=== PATIENT | male | born 1945 | race Caucasian/White ===

== ENCOUNTER 2022-01-15 23:40 | Emergency (ER) | payer MEDICARE, MEDICAID, SELFPAY ==
[2022-01-15 23:48] VITALS: BP 137/83; BP 150/80; PULSE 63; PULSE 64; RESP 16; TEMP 36.6; O2SAT 94; BMI 23.7
[2022-01-15 23:54] LABS: Glucose, Whole Blood 52 mg/dL (60-115)
--- NOTE | 2022-01-15 23:56 | ED.AMS ---
HPI - Altered Mental Status General Chief Complaint: Recheck/Abnormal Lab/Rx Stated Complaint: hypoglycemia Time Seen by Provider: 01/15/22 23:56 Source: patient, EMS and RN notes reviewed Mode of arrival: EMS Limitations: no limitations History of Present Illness HPI narrative: Patient from shelter came for episode of syncope. Patient just discharged from [facility] after 3 months of stay to the shelter on 01/14, with history of osteomyelitis of left foot on ampicillin IV, and CT renal disease dialysis, diabetes on insulin, COPD, paroxysmal atrial fibrillation, heart failure with preserved ejection fraction was at baseline at 20:30 blood sugar tested was 78. Patient is supposed to get Lantus 8 units at that time but was not given because the blood sugar was low at 22:30 when nurse went to see him patient was obtunded with minimal response blood pressure was 104/69 heart rate 121 blood sugar checked was 76 at that time when EMS came patient POC was 40 was given 150 cc of D10 and recheck PC was 143 patient arrived awake alert and oriented back to baseline during triage POC dropped to 52 patient was given 2 orange juices had this time patient is at his baseline denies any chest pain Related Data Allergies Allergy/AdvReac Type Severity Reaction Status Date / Time acetaminophen [From Vicodin] Allergy Unknown Unknown Verified 01/16/22 00:40 hydrocodone [From Vicodin] Allergy Unknown Unknown Verified 01/16/22 00:40 vancomycin Allergy Unknown Unknown Verified 01/16/22 00:40 Review of Systems Review of Systems: Yes all other systems are reviewed and are negative [facility] Past Medical History Medical History (Updated 01/16/22 @ 01:15 by Milan Hernandez MD) Amputation foot, bilat COPD (chronic obstructive pulmonary disease) Diabetes mellitus type 1 End stage renal disease Hyperlipidemia Hypertension Osteomyelitis Paroxysmal A-fib Peripheral arterial disease Physical Exam ED Vital Signs: Vital Signs - 24 hr 01/15/22 23:48 01/16/22 00:00 Temperature 97.8 F Pulse Rate 63 61 Respiratory Rate 16 18 Blood Pressure 137/83 135/80 Pulse Oximetry 94 96 BMI result Body Mass Index 23.7 Appearance: Alert. Oriented X3. No acute distress. Eyes: Pallor+ ENT: Pharynx normal. Oral Mucosa moist Neck: Normal inspection. Neck supple. CVS: Normal heart rate and rhythm. Pulses normal. Respiratory: No respiratory distress. Equal air entry bilateral, no wheezing/rales/rhonchi Abdomen: Soft and nontender. Bowel sounds are present, no mass palpable, no CVA tenderness Skin: Skin warm and dry. Normal skin color. Normal skin turgor. Extremities: No lower extremity edema. No calf tenderness, bilateral foot amputation right thomas carpal amputation Neuro: Oriented X 3. No motor deficit. No sensory deficit.No cerebellar signs , cranial nerves II-XII intact MDM - Altered Mental Status MDM Narrative Medical decision making narrative: Patient with hypoglycemic episode responded to dextrose not on oral hypoglycemic labs are stable no acute ischemic changes in the EKG at this time patient patient is alert x3 at his baseline will discharge patient back to shelter patient elevated troponin secondary to renal failure has normal CPK no acute ischemic change in EKG during stay Lab Data Attestation: I reviewed the patient's lab results. Result diagrams: 01/16/22 00:26 01/16/22 00:26 Labs: Lab Results 01/15/22 01/16/22 01/16/22 Range/Units 23:49 00:26 00:26 WBC 8.7 (4.8-10.8) X10*3/uL RBC 3.69 L (4.60-5.80) X10*6/uL Hgb 10.9 L (14.0-18.0) g/dl Hct 34.9 L (42.0-52.0) % MCV 94.6 (80.0-98.0) fL MCH 29.5 (27.0-33.0) pg MCHC 31.2 (31.0-36.0) g/dl RDW 16.8 H (11.0-16.0) % Plt Count 231 (160-400) X10*3/uL MPV 10.0 (9.4-12.4) fL Immature Gran % (Auto) 0.3 (0.0-0.4) % Neut % (Auto) 80.0 H (45-73) % Lymph % (Auto) 8.4 L (20-40) % [place] % (Auto) 10.8 (2-11) % Eos % (Auto) 0.3 (0-4) % Baso % (Auto) 0.2 (0-2) % Lymph # (Auto) 0.7 L (1.2-4.9) X10*3/uL [place] # (Auto) 0.9 (0.1-1.2) X10*3/uL Eos # (Auto) 0.0 (0.0-0.4) X10*3/uL Baso # (Auto) 0.0 (0.0-0.2) X10*3/uL Abs Immat Gran (auto) 0.03 (0.00-0.03) X10*3/uL Absolute Neuts (auto) 7.0 (2.0-8.3) x10*3/uL Absolute Nucleated RBC 0.000 (0.0-0.012) X10*3/uL Nucleated RBC % (auto) 0.0 (0.0-0.2) /100WBC Sodium 131 L (135-145) mmol/L Potassium 5.3 H (3.3-5.1) mmol/L Chloride 97 (96-108) mmol/L Carbon Dioxide 16 L (22-29) mmol/L Anion Gap 23 H (12-20) BUN 110 H (9-16) mg/dL Creatinine 5.87 H* (0.5-1.4) mg/dL Estim Creat Clear Calc 12.1 Estimated GFR 9 POC Glucose 52 L* (60-115) mg/dL Random Glucose 183 H (60-115) mg/dL Calcium 8.4 (8.4-10.2) mg/dL Total Bilirubin 0.5 (0.0-1.0) mg/dL AST 22 (5-37) U/L ALT 8 (0-40) U/L Alkaline Phosphatase 195 H (39-117) U/L Total Creatine Kinase 35 L (38-174) U/L Troponin I High Sens (<3.5-35.0) ng/L Total Protein 7.0 (6.5-8.0) g/dL Albumin 2.7 L (3.5-5.0) g/dL 01/16/22 01/16/22 Range/Units 00:26 00:49 WBC (4.8-10.8) X10*3/uL RBC (4.60-5.80) X10*6/uL Hgb (14.0-18.0) g/dl Hct (42.0-52.0) % MCV (80.0-98.0) fL MCH (27.0-33.0) pg MCHC (31.0-36.0) g/dl RDW (11.0-16.0) % Plt Count (160-400) X10*3/uL MPV (9.4-12.4) fL Immature Gran % (Auto) (0.0-0.4) % Neut % (Auto) (45-73) % Lymph % (Auto) (20-40) % [place] % (Auto) (2-11) % Eos % (Auto) (0-4) % Baso % (Auto) (0-2) % Lymph # (Auto) (1.2-4.9) X10*3/uL [place] # (Auto) (0.1-1.2) X10*3/uL Eos # (Auto) (0.0-0.4) X10*3/uL Baso # (Auto) (0.0-0.2) X10*3/uL Abs Immat Gran (auto) (0.00-0.03) X10*3/uL Absolute Neuts (auto) (2.0-8.3) x10*3/uL Absolute Nucleated RBC (0.0-0.012) X10*3/uL Nucleated RBC % (auto) (0.0-0.2) /100WBC Sodium (135-145) mmol/L Potassium (3.3-5.1) mmol/L Chloride (96-108) mmol/L Carbon Dioxide (22-29) mmol/L Anion Gap (12-20) BUN (9-16) mg/dL Creatinine (0.5-1.4) mg/dL Estim Creat Clear Calc Estimated GFR POC Glucose 142 H (60-115) mg/dL Random Glucose (60-115) mg/dL Calcium (8.4-10.2) mg/dL Total Bilirubin (0.0-1.0) mg/dL AST (5-37) U/L ALT (0-40) U/L Alkaline Phosphatase (39-117) U/L Total Creatine Kinase (38-174) U/L Troponin I High Sens 120.2 H* (<3.5-35.0) ng/L Total Protein (6.5-8.0) g/dL Albumin (3.5-5.0) g/dL ECG Data ECG #1: Interpretation: Normal sinus rhythm heart rate 63, LVH normal interval normal axis no acute ST-T changes no acute ischemia Discharge Plan Discharge Clinical Impression: Diabetic hypoglycemia Patient Disposition: Xfer [facility] Instructions: Hypoglycemia in a Person with Diabetes (ED) Additional Instructions: Check blood sugar more frequently Have meals on time
[2022-01-16] VITALS: BP 135/80; PULSE 61; RESP 18; O2SAT 96
--- NOTE | 2022-01-16 00:13 | ECG_ITS ---
Test Reason : SYNCOPE Blood Pressure : / mmHG Vent. Rate : 063 BPM Atrial Rate : 063 BPM P-R Int : 168 ms QRS Dur : 128 ms QT Int : 494 ms P-R-T Axes : 023 -07 156 degrees QTc Int : 505 ms Normal sinus rhythm Left ventricular hypertrophy with QRS widening and repolarization abnormality ( Yfn product ) Abnormal ECG No previous ECGs available Referred By: Milan Hernandez Electronically Signed By:KITA WALLER
[2022-01-16] MEDS: Dextrose 50 % 25 GM/50 ML SYRINGE IVPUSH (00:20)
[2022-01-16 00:30] LABS: Basophils Percent Auto 0.2 % (0-2); Eosinophils Percent Auto 0.3 % (0-4); Hematocrit 34.9 % (42.0-52.0); Hemoglobin 10.9 g/dl (14.0-18.0); Imm Gran Abs Auto 0.03 X10*3/uL (0.00-0.03); Imm Gran Pct Auto 0.3 % (0.0-0.4); Lymphocytes Absolute Auto 0.7 X10*3/uL (1.2-4.9); Lymphocytes Percent Auto 8.4 % (20-40); MANUAL DIFF FLAG NO; Mean Corpuscular HGB Conc 31.2 g/dl (31.0-36.0); Mean Corpuscular Hemoglobin 29.5 pg (27.0-33.0); Mean Corpuscular Volume 94.6 fL (80.0-98.0); Monocytes Absolute Auto 0.9 X10*3/uL (0.1-1.2); Monocytes Percent Auto 10.8 % (2-11); Platelet Count 231 X10*3/uL (160-400); Red Blood Count 3.69 X10*6/uL (4.60-5.80); Red Cell Distribution Width 16.8 % (11.0-16.0); White Blood Count 8.7 X10*3/uL (4.8-10.8)
[2022-01-16 00:54] LABS: Glucose, Whole Blood 142 mg/dL (60-115)
[2022-01-16 01:09] LABS: Alanine Aminotransferase 8 U/L (0-40); Albumin Level 2.7 g/dL (3.5-5.0); Alkaline Phosphatase 195 U/L (39-117); Anion Gap 23 (12-20); Aspartate Amino Transferase 22 U/L (5-37); Bilirubin Total 0.5 mg/dL (0.0-1.0); Blood Urea Nitrogen 110 mg/dL (9-16); Calcium 8.4 mg/dL (8.4-10.2); Carbon Dioxide 16 mmol/L (22-29); Chloride 97 mmol/L (96-108); Creatinine Clr Calc Pharmacy 12.1; Estimated Glomerular Filt Rate 9; Glucose Random 183 mg/dL (60-115); Potassium 5.3 mmol/L (3.3-5.1); Sodium 131 mmol/L (135-145); Troponin-I High Sensitivity 120.2 ng/L (<3.5-35.0)
[2022-01-16 02:02] VITALS: BP 135/78; PULSE 59; RESP 16; TEMP 36.6; O2SAT 96
--- NOTE | 2022-01-16 02:10 | PC.NURSE ---
Nurse to nurse report given to Cleopatra MILLS at [facility] (second floor)
[2022-01-16 16:03] LABS: Glucose, Whole Blood 131 mg/dL (60-115)
== END 2022-01-16 02:12 ==
PROVIDERS: Emergency Provider Internal Medicine
DX: E10.22 Type 1 diabetes mellitus with diabetic chronic kidney disease (principal); E10.649 Type 1 diabetes mellitus with hypoglycemia without coma; I13.2 Hypertensive heart and chronic kidney disease with heart failure and with stage 5 chronic kidney disease, or end stage renal disease; I50.9 Heart failure, unspecified; N18.6 End stage renal disease; Z99.2 Dependence on renal dialysis; I48.0 Paroxysmal atrial fibrillation
CPT/HCPCS: 36415; 80053; 82550; 82947; 84484; 85025; 93005; 96374; 99284

== ENCOUNTER 2022-01-17 15:05 | Emergency (ER) | payer MEDICARE, MEDICAID, SELFPAY ==
[2022-01-17 15:31] VITALS: BP 118/72; PULSE 66; RESP 18; TEMP 36.5; O2SAT 94; BMI 22.1
--- NOTE | 2022-01-17 15:34 | ED.GENADULT ---
HPI - General Adult General Chief complaint: General Medical Stated complaint: NEED IV PLACED FROM [facility] Time Seen by Provider: 01/17/22 15:08 Source: EMS Mode of arrival: EMS Limitations: other (Patient is very hard of hearing which makes it difficult to get information from him) History of Present Illness HPI narrative: 76-year-old male who was sent to emergency department from his nursing facility for placement of IVs that he continue to get IV antibiotics. Apparently the patient has osteomyelitis of the left foot and is on IV antibiotics for 3 months. The paramedics state that the patient needs an IV site he can continue to get his IV antibiotics and that is the reason why that he has been sent to the emergency department. The patient was here in the emergency department on 04/14/2022 for hypoglycemia. Related Data Allergies Allergy/AdvReac Type Severity Reaction Status Date / Time acetaminophen [From Vicodin] Allergy Unknown Unknown Verified 01/16/22 00:40 hydrocodone [From Vicodin] Allergy Unknown Unknown Verified 01/16/22 00:40 vancomycin Allergy Unknown Unknown Verified 01/16/22 00:40 Review of Systems Review of Systems: Yes all other systems are reviewed and are negative [facility] Past Medical History Medical History Amputation foot, bilat COPD (chronic obstructive pulmonary disease) Diabetes mellitus type 1 End stage renal disease Hyperlipidemia Hypertension Osteomyelitis Paroxysmal A-fib Peripheral arterial disease Physical Exam ED Vital Signs: Vital Signs - 24 hr 01/17/22 15:31 Temperature 97.7 F Pulse Rate 66 Respiratory Rate 18 Blood Pressure 118/72 Pulse Oximetry 94 BMI result Body Mass Index 22.1 Const Other: Awake, alert, male, very hard of hearing, has no complaints. HENOR Head: Yes normocephalic and Yes atraumatic Eyes General: appearance normal, both eyes and all related structures Chest Chest palpation & inspection: normal inspection of the chest Resp Effort & Inspection: normal respiratory effort Cardio Rate: regular rate Rhythm: regular rhythm Heart sounds: S1 normal heart sound present and S2 normal heart sound present GI Inspection: Yes normal to inspection Palpation (GI): Soft to palpation, nontender and no guarding Psych Appearance: grossly normal Mental Status: mental status grossly normal Speech and movement: Normal speech and movement present Course Course Course Narrative: 76-year-old male who was on IV antibiotics for osteomyelitis of the left foot who was sent to emergency department for IV insertion so that he can continue to get his antibiotics. The patient has no complaints. Exam is consistent with his baseline. Vital signs were stable. The ED nurse was able to insert an IV and the patient will be discharged back to his care facility. Discharge Plan Discharge Clinical Impression: Acute osteomyelitis of left foot, Difficult intravenous access Patient Disposition: [facility] Additional Instructions: The ED nurse was able to insert an IV that you can use for your IV antibiotics. If you need [facility] antibiotic use then your nursing facility has to arrange a more permanent IV line such as PICC line, this can be done through Interventional Radiology.
== END 2022-01-17 16:48 | disposition skilled nursing facility (03) ==
PROVIDERS: Emergency Provider Emergency Medicine Emergency Medical Services; PCP Internal Medicine
DX: M86.8X7 Other osteomyelitis, ankle and foot (principal); Z79.899 Other long term (current) drug therapy
CPT/HCPCS: 99283

== ENCOUNTER 2022-01-21 09:11 | Emergency (ER) | payer MEDICARE, MEDICAID, SELFPAY ==
--- NOTE | ~2022-01-21 | XR_ITS ---
EXAMINATION: XR CHEST CLINICAL INFORMATION: Weakness COMPARISON: None TECHNIQUE: AP portable view of the chest was obtained. FINDINGS: There is hazy density at both lung bases consistent with pleural effusions left greater than right. Patient status post previous left thoracic surgery. There is some bibasilar disease present. There is a right internal jugular dialysis catheter in place with tip in the superior right atrium. A vascular stent is partially visualized about the left axilla. The cardiopericardial silhouette is upper limits of normal in size. No evidence of pulmonary edema. No pneumothorax. XR/XR chest 1V IMPRESSION: Bilateral pleural effusions and basilar disease. No evidence of acute pulmonary edema.
[2022-01-21 09:24] VITALS: BP 153/70; PULSE 66; RESP 13; TEMP 36.6; O2SAT 97; BMI 23.2
--- NOTE | 2022-01-21 09:25 | ED_ITS ---
HPI - General Adult General Chief complaint: Recheck/Abnormal Lab/Rx Stated complaint: FOUND UNRESP,LOW BS 43 FROM SNF Time Seen by Provider: 01/21/22 09:27 Source: patient and EMS Mode of arrival: EMS Limitations: no limitations History of Present Illness MD complaint: found unresponsive by staff - POC by EMS 43 given D10 100ml woke up en rout Onset (ago): unknown Severity: moderate Relieving factors: other (D10) Exacerbating factors: other (this happens a lot they mess with my regimen all the time) Associated symptoms: other ( the ride here hurt my butt ) Treatments prior to arrival: other (D10 100ml per hour) Related Data Home Medications Medication Instructions Recorded Confirmed acetaminophen 500 mg tablet 1,000 mg PO TID 01/21/22 01/21/22 ascorbic acid (vitamin C) 125 mg 125 mg PO DAILY 01/21/22 01/21/22 chewable tablet (Vitamin C) aspirin 81 mg tablet,delayed 81 mg PO DAILY 01/21/22 01/21/22 release atorvastatin 80 mg tablet 80 mg PO DAILY 01/21/22 01/21/22 clopidogrel 75 mg tablet 75 mg PO DAILY 01/21/22 01/21/22 cyanocobalamin (vitamin B-12) 1,000 mcg PO DAILY 01/21/22 01/21/22 1,000 mcg tablet finasteride 5 mg tablet 5 mg PO DAILY 01/21/22 01/21/22 hydromorphone 2 mg tablet 2 mg PO Q8H PRN 01/21/22 01/21/22 insulin glargine 100 unit/mL (3 4 unit SUBCUT BID 01/21/22 01/21/22 mL) subcutaneous pen (Lantus Solostar U-100 Insulin) insulin lispro 100 unit/mL 1 sliding scale dose SUBCUT 01/21/22 01/21/22 subcutaneous solution (Humalog USEASDIRECTD U-100 Insulin) insulin lispro 100 unit/mL 6 unit SUBCUT TIDAC 01/21/22 01/21/22 subcutaneous solution (Humalog U-100 Insulin) metoprolol tartrate 25 mg tablet 25 mg PO DAILY 01/21/22 01/21/22 pantoprazole 40 mg tablet,delayed 40 mg PO BID 01/21/22 01/21/22 release sennosides 8.6 mg tablet (senna) 17.2 mg PO BID 01/21/22 01/21/22 sevelamer HCl 800 mg tablet 1,600 mg PO TID 01/21/22 01/21/22 (Renagel) tamsulosin 0.4 mg capsule 0.8 mg PO BEDTIME 01/21/22 01/21/22 torsemide 100 mg tablet 100 mg PO BID 01/21/22 01/21/22 trazodone 100 mg tablet 100 mg PO BEDTIME 01/21/22 01/21/22 vitamin A 10,000 unit capsule 10,000 unit PO DAILY 01/21/22 01/21/22 vitamin B complex 1 tab PO DAILY 01/21/22 01/21/22 Allergies Allergy/AdvReac Type Severity Reaction Status Date / Time acetaminophen [From Vicodin] Allergy Unknown Unknown Verified 01/16/22 00:40 hydrocodone [From Vicodin] Allergy Unknown Unknown Verified 01/16/22 00:40 vancomycin Allergy Unknown Unknown Verified 01/16/22 00:40 Review of Systems Review of Systems: Constitutional : No Fever, No Chills, No Fatigue, No Malaise ENT/Mouth : No sore throat, No Rhinorrhea Eyes: No Eye Pain, No Swelling, No Redness Cardiovascular : No Chest Pain, No SOB, No Dyspnea on Exertion Respiratory : No Cough, No Sputum, No Wheezing Gastrointestinal : No Nausea, No Vomiting, No Diarrhea, No Constipation, No abdominal Pain Genitourinary : No Dysuria, No Urinary Frequency, No Hematuria, Musculoskeletal : No joint pain, No Myalgias, No Joint Swelling, chronic back pain Skin : pos chronic Skin Lesions, No rash Neuro : No Weakness, No Numbness, No Dizziness, No Headache Psych : No Anxiety/Panic, No Depression Heme/Lymph: pos Bruising, No Bleeding,No Lymphadenopathy Endocrine : No Polyuria, No Polydipsia All other systems reviewed and are negative [facility] Past Medical History Attestation statement: The following information was validated with the patient. Medical History Amputation foot, bilat COPD (chronic obstructive pulmonary disease) Diabetes mellitus type 1 End stage renal disease Hyperlipidemia Hypertension Osteomyelitis Paroxysmal A-fib Peripheral arterial disease Social History Social History (Updated 01/21/22 @ 09:26 by Floridalma Cheng DO) Patient Tobacco Use Status: Tobacco use Unknown Advance Directives: No Advance Directives Information Provided: No Physical Exam ED Vital Signs: Vital Signs - 24 hr 01/21/22 09:24 Temperature 97.9 F Pulse Rate 66 Respiratory Rate 13 Blood Pressure 153/70 H Pulse Oximetry 97 BMI result Body Mass Index 23.2 Appearance: Alert. Oriented X3. No acute distress. Making jokes Eyes: Pupils equal, round and reactive to light. ENT: Pharynx normal. Neck: Normal inspection. Neck supple. CVS: Normal heart rate and rhythm. Pulses normal. Respiratory: No respiratory distress. Breath sounds decreased at the bases Abdomen: Soft and non-tender. Skin: Skin warm and dry. Normal skin color. Normal skin turgor. Extremities: No lower extremity edema. Missing digits on both hands and bilateral amputations at feet - wounds c/d/i no signs of infection at this time, fingers are dry and gangrenous. Neuro: Oriented X 3. No motor deficit. No sensory deficit. Course Course Course Narrative: last dose of ertapenem was yesterday CXR likely due to volume and not pneumonia, denies cough has no WBC count no fevers no complaints BS up to 247 can be DC back to facility no interventions since 11am (4 hours) Procedures EJ/Peripheral Line Neck L: Time Out Performed: Yes Skin Cleansed in Sterile Fashion: Yes Size (gauge): 20 IV Secured and Dressing Applied: Yes Patient Tolerated Procedure: well and no complications Medical Decision Making MDM Narrative Medical decision making narrative: 76 yo male with hx of IDDM PAF ESRD on HD due today chronic osteo and chronic wounds COPD chronic pain CAD here with c/o hypoglycemia just seen 01/15 for same complaint he notes they are changing his night regimen around. At this time suspect insulin issue he has no new complaints wounds look good will obtain labs, UA, CXR and observe. Lab Data Result diagrams: 01/21/22 11:22 01/21/22 12:45 Labs: Lab Results 01/21/22 01/21/22 01/21/22 Range/Units 11:22 11:22 12:45 WBC 7.0 (4.8-10.8) X10*3/uL RBC 3.38 L (4.60-5.80) X10*6/uL Hgb 10.0 L (14.0-18.0) g/dl Hct 31.4 L (42.0-52.0) % MCV 92.9 (80.0-98.0) fL MCH 29.6 (27.0-33.0) pg MCHC 31.8 (31.0-36.0) g/dl RDW 16.7 H (11.0-16.0) % Plt Count 203 (160-400) X10*3/uL MPV 10.2 (9.4-12.4) fL Immature Gran % (Auto) 0.3 (0.0-0.4) % Neut % (Auto) 76.6 H (45-73) % Lymph % (Auto) 15.4 L (20-40) % [place] % (Auto) 6.1 (2-11) % Eos % (Auto) 1.3 (0-4) % Baso % (Auto) 0.3 (0-2) % Lymph # (Auto) 1.1 L (1.2-4.9) X10*3/uL [place] # (Auto) 0.4 (0.1-1.2) X10*3/uL Eos # (Auto) 0.1 (0.0-0.4) X10*3/uL Baso # (Auto) 0.0 (0.0-0.2) X10*3/uL Abs Immat Gran (auto) 0.02 (0.00-0.03) X10*3/uL Absolute Neuts (auto) 5.4 (2.0-8.3) x10*3/uL Absolute Nucleated RBC 0.000 (0.0-0.012) X10*3/uL Nucleated RBC % (auto) 0.0 (0.0-0.2) /100WBC PT 15.5 H (9.9-13.0) SEC INR 1.4 H (0.9-1.1) Sodium 137 (135-145) mmol/L Potassium 5.4 H (3.3-5.1) mmol/L Chloride 100 (96-108) mmol/L Carbon Dioxide 22 (22-29) mmol/L Anion Gap 20 (12-20) BUN 86 H D (9-16) mg/dL Creatinine 4.59 H* (0.5-1.4) mg/dL Estim Creat Clear Calc 15.4 Estimated GFR 13 POC Glucose (60-115) mg/dL Random Glucose 137 H (60-115) mg/dL Calcium 8.0 L (8.4-10.2) mg/dL Magnesium 2.9 H (1.6-2.6) mg/dL Total Bilirubin 0.5 (0.0-1.0) mg/dL Direct Bilirubin 0.2 (0.0-0.5) mg/dL AST 29 (5-37) U/L ALT < 6 (0-40) U/L Alkaline Phosphatase 195 H (39-117) U/L Total Protein 6.7 (6.5-8.0) g/dL Albumin 2.6 L (3.5-5.0) g/dL 01/21/22 Range/Units 13:13 WBC (4.8-10.8) X10*3/uL RBC (4.60-5.80) X10*6/uL Hgb (14.0-18.0) g/dl Hct (42.0-52.0) % MCV (80.0-98.0) fL MCH (27.0-33.0) pg MCHC (31.0-36.0) g/dl RDW (11.0-16.0) % Plt Count (160-400) X10*3/uL MPV (9.4-12.4) fL Immature Gran % (Auto) (0.0-0.4) % Neut % (Auto) (45-73) % Lymph % (Auto) (20-40) % [place] % (Auto) (2-11) % Eos % (Auto) (0-4) % Baso % (Auto) (0-2) % Lymph # (Auto) (1.2-4.9) X10*3/uL [place] # (Auto) (0.1-1.2) X10*3/uL Eos # (Auto) (0.0-0.4) X10*3/uL Baso # (Auto) (0.0-0.2) X10*3/uL Abs Immat Gran (auto) (0.00-0.03) X10*3/uL Absolute Neuts (auto) (2.0-8.3) x10*3/uL Absolute Nucleated RBC (0.0-0.012) X10*3/uL Nucleated RBC % (auto) (0.0-0.2) /100WBC PT (9.9-13.0) SEC INR (0.9-1.1) Sodium (135-145) mmol/L Potassium (3.3-5.1) mmol/L Chloride (96-108) mmol/L Carbon Dioxide (22-29) mmol/L Anion Gap (12-20) BUN (9-16) mg/dL Creatinine (0.5-1.4) mg/dL Estim Creat Clear Calc Estimated GFR POC Glucose 180 H (60-115) mg/dL Random Glucose (60-115) mg/dL Calcium (8.4-10.2) mg/dL Magnesium (1.6-2.6) mg/dL Total Bilirubin (0.0-1.0) mg/dL Direct Bilirubin (0.0-0.5) mg/dL AST (5-37) U/L ALT (0-40) U/L Alkaline Phosphatase (39-117) U/L Total Protein (6.5-8.0) g/dL Albumin (3.5-5.0) g/dL ECG Data Attestation: I personally reviewed and interpreted this ECG as follows: Interpretation: Rate: 61 Rhythm: NSR [place]: normal Normal P waves. Normal SUNSHINE. wide QRS complex. ST T wave : inverted I and aVL - V5 - V6 no JEANMARIE qTC: normal prior studies: no acute ischemia The study has been interpreted contemporaneously by me. . Critical Care Time Critical Care Time Critical Care Time: Yes Total Critical Care Time: 45 Attestation: repeat interventions for low blood sugar , observation, review of medical records I attest to this time spent taking care of the patient Discharge Plan Discharge Clinical Impression: Hypoglycemia Patient Disposition: Xfer SNF Transfer Details: [facility] Instructions: Hypoglycemia in a Person with Diabetes (ED) Additional Instructions: return to ED for any worsening symptoms or concerns has some slight congestion on chest xray needs to get dialysis at least tomorrow , BS up to 247 please monitor his blood sugars closely today follow up with his doctor Prescriptions: No Action atorvastatin 80 mg Tablet 80 mg PO DAILY 0RF sennosides [senna] 8.6 mg Tablet 17.2 mg PO BID 0RF sevelamer HCl [Renagel] 800 mg Tablet 1,600 mg PO TID 0RF Rx Instructions: must administer with a meal/food cyanocobalamin (vitamin B-12) 1,000 mcg Tablet 1,000 mcg PO DAILY 0RF clopidogrel 75 mg Tablet 75 mg PO DAILY 0RF aspirin 81 mg Tablet,Delayed Release (Dr/Ec) 81 mg PO DAILY 0RF acetaminophen 500 mg Tablet 1,000 mg PO TID 0RF hydromorphone 2 mg Tablet 2 mg PO Q8H PRN (Reason: Pain) 0RF vitamin A 10,000 unit Capsule 10,000 unit PO DAILY 0RF torsemide 100 mg Tablet 100 mg PO BID 0RF tamsulosin 0.4 mg Capsule 0.8 mg PO BEDTIME 0RF trazodone 100 mg Tablet 100 mg PO BEDTIME 0RF pantoprazole 40 mg Tablet,Delayed Release (Dr/Ec) 40 mg PO BID 0RF vitamin B complex Tablet 1 tab PO DAILY 0RF insulin lispro [Humalog U-100 Insulin] 100 unit/mL Solution 1 sliding scale dose SUBCUT USEASDIRECTD 0RF insulin lispro [Humalog U-100 Insulin] 100 unit/mL Solution 6 unit SUBCUT TIDAC 0RF finasteride 5 mg Tablet 5 mg PO DAILY 0RF metoprolol tartrate 25 mg Tablet 25 mg PO DAILY 0RF Lantus Solostar U-100 Insulin 100 unit/mL (3 mL) Insulin Pen 4 unit SUBCUT BID 0RF ascorbic acid (vitamin C) [Vitamin C] 125 mg Tablet,Chewable 125 mg PO DAILY 0RF
--- NOTE | 2022-01-21 09:28 | ECG_ITS ---
Test Reason : hypoglycemia Blood Pressure : / mmHG Vent. Rate : 061 BPM Atrial Rate : 061 BPM P-R Int : 152 ms QRS Dur : 120 ms QT Int : 456 ms P-R-T Axes : 055 002 153 degrees QTc Int : 459 ms Normal sinus rhythm Left ventricular hypertrophy with QRS widening and repolarization abnormality ( Josephine product ) Abnormal ECG When compared with ECG of 16-JAN-2022 00:15, No significant change was found Referred By: Floridalma Cheng Electronically Signed By:Jose Vega
[2022-01-21] MEDS: Dextrose 50 % 25 GM/50 ML SYRINGE IVPUSH ×2 (10:00→11:26)
[2022-01-21 11:27] LABS: MANUAL DIFF FLAG NO
[2022-01-21 11:29] LABS: Basophils Percent Auto 0.3 % (0-2); Eosinophils Absolute Auto 0.1 X10*3/uL (0.0-0.4); Eosinophils Percent Auto 1.3 % (0-4); Hematocrit 31.4 % (42.0-52.0); Imm Gran Abs Auto 0.02 X10*3/uL (0.00-0.03); Imm Gran Pct Auto 0.3 % (0.0-0.4); Lymphocytes Absolute Auto 1.1 X10*3/uL (1.2-4.9); Lymphocytes Percent Auto 15.4 % (20-40); Mean Corpuscular HGB Conc 31.8 g/dl (31.0-36.0); Mean Corpuscular Hemoglobin 29.6 pg (27.0-33.0); Mean Corpuscular Volume 92.9 fL (80.0-98.0); Mean Platelet Volume 10.2 fL (9.4-12.4); Monocytes Absolute Auto 0.4 X10*3/uL (0.1-1.2); Monocytes Percent Auto 6.1 % (2-11); Neutrophils Absolute Auto 5.4 x10*3/uL (2.0-8.3); Neutrophils Percent Auto 76.6 % (45-73); Platelet Count 203 X10*3/uL (160-400); Red Blood Count 3.38 X10*6/uL (4.60-5.80); Red Cell Distribution Width 16.7 % (11.0-16.0)
[2022-01-21 11:36] LABS: INTERNATIONAL NORM RATIO 1.4 (0.9-1.1); Prothrombin Time 15.5 SEC (9.9-13.0)
[2022-01-21 12:26] LABS: Glucose, Whole Blood 49 mg/dL (60-115)
[2022-01-21 12:28] LABS: Glucose, Whole Blood 62 mg/dL (60-115)
--- NOTE | 2022-01-21 12:44 | PHA.MEDREC ---
Pharmacy Consult ? Medication Reconciliation Pharmacy has completed the medication reconciliation. Patient came from [facility] with medication list. Rupa Teague, RaghuD
--- NOTE | 2022-01-21 13:00 | PC.NURSE ---
pt [facility] after being found unresponsive in his bed and low poc. poc checked on arrival. pt difficult stick, LEJ placed by Dr. Cheng, labs drawn and meds given as documented. pt repositioned for comfort and lunch given. vss, pt alert and oriented. pt resting quietly in bed.
[2022-01-21 13:17] LABS: Glucose, Whole Blood 180 mg/dL (60-115)
[2022-01-21 13:18] LABS: Alanine Aminotransferase < 6 U/L (0-40); Albumin Level 2.6 g/dL (3.5-5.0); Alkaline Phosphatase 195 U/L (39-117); Anion Gap 20 (12-20); Aspartate Amino Transferase 29 U/L (5-37); Bilirubin Direct 0.2 mg/dL (0.0-0.5); Bilirubin Total 0.5 mg/dL (0.0-1.0); Blood Urea Nitrogen 86 mg/dL (9-16); Carbon Dioxide 22 mmol/L (22-29); Chloride 100 mmol/L (96-108); Creatinine Clr Calc Pharmacy 15.4; Estimated Glomerular Filt Rate 13; Glucose Random 137 mg/dL (60-115); Magnesium 2.9 mg/dL (1.6-2.6); Potassium 5.4 mmol/L (3.3-5.1); Sodium 137 mmol/L (135-145); Total Protein 6.7 g/dL (6.5-8.0)
[2022-01-21] MEDS: HYDROmorphone HCl 2 MG TABLET PO (13:54)
[2022-01-21 15:10] LABS: Glucose, Whole Blood 247 mg/dL (60-115)
[2022-01-21 17:01] LABS: Glucose, Whole Blood 299 mg/dL (60-115)
--- NOTE | 2022-01-21 17:44 | PC.NURSE ---
pt medically cleared for discharge. nurse to nurse report given to Nurse Elmore at [facility]. Pt awaiting ambulance for transport back to facility.
[2022-01-21 19:27] VITALS: BP 149/84; PULSE 70; RESP 19; O2SAT 94
--- NOTE | 2022-01-21 19:33 | PC.NURSE ---
report given to ems
== END 2022-01-21 19:39 | disposition skilled nursing facility (03) ==
PROVIDERS: Internal Medicine; Emergency Provider Emergency Medicine; PCP Internal Medicine
DX: E10.22 Type 1 diabetes mellitus with diabetic chronic kidney disease (principal); E10.649 Type 1 diabetes mellitus with hypoglycemia without coma; I12.0 Hypertensive chronic kidney disease with stage 5 chronic kidney disease or end stage renal disease; N18.6 End stage renal disease; I48.0 Paroxysmal atrial fibrillation; Z99.2 Dependence on renal dialysis; Z79.4 Long term (current) use of insulin; Z79.82 Long term (current) use of aspirin; Z79.02 Long term (current) use of antithrombotics/antiplatelets
CPT/HCPCS: 36410; 36415; 71045; 80048; 80076; 82947; 83735; 85025; 85610; 93005; 96374; 96376; 99285; 99291